=== PATIENT | female | born 2005 | race Caucasian/White ===

== ENCOUNTER 2024-11-26 11:46 | Emergency (ER) | payer OTHER, SELFPAY ==
[2024-11-26 11:46] VITALS: BMI 19.9
[2024-11-26 11:49] VITALS: BP 108/78
[2024-11-26] MEDS: TORADOL 15 MG IV (12:47)
[2024-11-26] MEDS: ZOFRAN 4 MG IV (12:47)
[2024-11-26] MEDS: NSS 1000 IV (12:47)
[2024-11-26] MEDS: OMNIPAQUE 50 ML PO (12:47)
--- NOTE | 2024-11-26 12:47 | ED.GENMED ---
History of Present Illness
General
Chief Complaint: Abdominal Pain
Source: patient and family
Exam Limitations: none
Time Seen by Provider: 11/26/24 12:19
Nursing documentation reviewed up to this point in time: agreed with
History of Present Illness
History of Present Illness:
19 year old female presenting with acute onset diffuse abdominal pain associated with nausea,vomiting, and diarrhea. Symptoms started this morning once she woke up. She reports multiple episodes of nonbloody emesis and diarrhea. She describes pain
as 'crampy' without a vague distribution. She does note starting her menses last night and initially thought pain was period cramps however - she has never experienced them to this severity.
No associated fevers or urinary symptoms. No known sick contacts
She does have a hx of Crohn which is well controlled and states that this feels very different.
Review of Systems
Review of Systems
Allergies reviewed?: Yes
All Other Systems: ROS reviewed and negative except as documented in HPI and ROS
Phy Exam
Physical Exam
Physical Exam:
Vitals: Patient's vital signs are stable. Afebrile
General: Patient is moderately uncomfortable due to pain/nausea although appears nontoxic
Skin: Warm and dry, no rashes or lesions
Head: Normocephalic, atraumatic
Eyes: Sclera nonicteric.
Throat: Protecting airway
Neck: Normal ROM, no cervical spine tenderness, no meningismus
Cardiac: Regular rate and rhythm, no murmurs.
Pulm: Normal respiratory effort, no wheezes, rales, rhonchi heard on exam.
Abdomen: Abdomen soft. Mild diffuse abdominal tenderness without rebound tenderness or guarding. No point tenderness at mcburney point. Negative rodriguez sign.
Extremities: No evidence of cyanosis or edema
Neuro: AAOx3. CN II-XII intact. No focal neurologic deficits.
Psychiatric: Normal affect.
Course
Orders/Labs/Results
Orders:
Orders
11/26/24 12:32
0.9% Sodium Chloride 1000 ml [Nss] 1,000 ml IV BOLUS
Iohexol [Omnipaque] See Protocol PO NOW STA
Ketorolac [Toradol] 15 mg IV NOW STA
Ondansetron Injectable [Zofran] 4 mg IV NOW STA
Pelvis (Non Obstetric) US [US Pelvis Only (non-obstetric)] Urgent
Comment:
Reason For Exam: abdominal pain, +N/V
US Abdomen - Appendix Only Urgent
Comment:
Reason For Exam: jael-umbilical abdominal pain +vomiting
11/26/24 12:33
Test Result ONCE
11/26/24 12:45
Complete Blood Count/With Diff Urgent
Comprehensive Metabolic Panel Urgent
HCG, Serum Qualitative Screen Urgent
Lipase Urgent
11/26/24 13:13
Metoclopramide [Reglan] 10 mg IV NOW STA
11/26/24 13:37
Morphine Sulfate 2 mg IV NOW STA
Abnormal Lab Results
11/26/24
12:45
WBC 17.2 H 10^3/uL
(4.8-10.8)
RBC 4.11 L 10^6/uL
(4.20-5.40)
Hgb 10.5 L g/dL
(12.0-16.0)
Hct 31.8 L %
(37.0-47.0)
MCV 77.4 L fL
(81.0-99.0)
MCH 25.5 L pg
(27.0-31.0)
Abs Immat Gran (auto) 0.1 H 10^3/uL
(0-0.05)
Absolute Neuts (auto) 15.9 H 10^3/uL
(1.4-6.5)
Absolute Lymphs (auto) 0.7 L 10^3/uL
(1.2-3.4)
Neutrophils % 92.2 H %
(42.2-75.2)
Lymphocytes % 3.9 L %
(20.5-51.1)
Carbon Dioxide 18 L mmol/L
(22-30)
Glucose 171 H mg/dl
(70-99)
Calcium 10.3 H mg/dl
(8.4-10.2)
Total Protein 8.5 H g/dl
(6.3-8.2)
11/26/24 12:45
11/26/24 12:45
Vital Signs
Initial and Last Documented VS:
Initial Vital Signs
Temp Pulse Resp BP Pulse Ox
97.5 F 95 16 108/78 100
11/26/24 11:49 11/26/24 11:49 11/26/24 11:49 11/26/24 11:49 11/26/24 11:49
Last Documented Vital Signs
Temp Pulse Resp BP Pulse Ox
97.5 F 72 16 99/49 98
11/26/24 11:49 11/26/24 17:39 11/26/24 17:39 11/26/24 17:39 11/26/24 17:42
MDM/Problems Addressed
Differential Diagnosis Includes:
Not limited to: viral gastroenteritis, ovarian torsion, dysmenorrhea, appendicitis, etc.
MDM/Problems Addressed:
19 year-old female presenting with acute onset diffusive abdominal pain associated with persistent nausea, vomiting, diarrhea starting this morning. She did start her period yesterday. Patient afebrile with otherwise stable vital signs. Physical
exam as above. Differential broad at this time. Although given acute onset nature associated with vomiting � ovarian torsion would be on differential. Will start with basic labs, urinalysis, symptomatic treatment. Will attain pelvic ultrasound and
appendix ultrasound. Will closely monitor and reassess.
Update: labs reviewed significant for a leukocytosis and mild acidosis likely secondary to G.I. losses. Patient symptoms seem significantly improved following pain management as well as antiemetic therapy. Ultrasound pending.
Update: Both pelvic and appendix ultrasound without acute abnormalities. Appendix was not visualized on ultrasound. Patient is resting comfortably in room and has been without additional episodes of vomiting in emergency department. Did examine
abdomen again which is soft and nontender. There are no areas of focal tenderness, specifically not at McBurney�s point. Overall impression is likely gastroenteritis given benign abdominal exam and complete improvement in symptoms. However - unable
to exclude appendicitis. Did discuss CT scan for further evaluation. As she is completely asymptomatic - she prefers discharge home with close monitoring of symptoms. Will send prescription for Zofran as needed. Very strict return precautions
discussed including fever, worsening abdominal pain, persistent lack of appetite, etc. Patient and patient parents comfort with plan. All questions answered.
Chronic conditions affecting care:
N/A
Acute Exacerbation and/or Progression of Chronic Illness:
N/A
*Radiology
Radiology exam reviewed: radiology read reviewed
*Pulse Oximetry
Patient hypoxic: no
*EKG
Interpreted by ED Provider?: NA
*Gas Booster Engineer Interpretation
Rate: Gas Booster Engineer- N/A
*Critical Care Note
Total Time (30-74mins, 75-104mins- exclusive of procedures): Not Applicable
Data Reviewed
Further Testing Considered But Not Given:
considered abdominal ct although patient afebrile with complete resolution in symptoms with benign abdominal exam
ED Attending Note
-
Portions of this chart may have been created with voice recognition software.� Occasional wrong word or��sound alike� substitutions may have occurred due to the inherent limitations of voice recognition software.
Discharge Plan
Departure
Patient Disposition: Home (Routine Discharge)
Date of Disposition: 11/26/24
Time of Disposition: 17:25
Patient with high blood pressure during this ER visit?: No
Condition: Good
Covid-19: Not Applicable
Discharge Problem:
Abdominal pain, Nausea, vomiting and diarrhea
Instructions: Nausea and Vomiting, Adult (DC), Abdominal Pain
Prescriptions:
New
ondansetron 4 mg tablet,disintegrating
4 mg PO Q8H PRN (Reason: nausea and vomiting) Qty: 5 0RF
No Action
infliximab [Remicade] 100 MG/10 ML recon soln
100 mg IV .[id number]
amoxicillin 500 MG capsule
500 mg PO TID Qty: 29 0RF
Referrals:
Thomas Munoz MD [Primary Care Provider] - Follow up in 2-3 days
Activity Restrictions/Additional Instructions:
RETURN TO THE EMERGENCY DEPARTMENT WITH ANY FEVERS, WORSENING ABDOMINAL PAIN, INTRACTABLE NAUSEA/VOMITING, PERSISTENT LACK OF APPETITE, LIGHTHEADEDNESS, OR ANY OTHER CONCERNS
- As discussed-it is important stay well-hydrated. I recommend a bland diet over the next few days and advance as tolerated.
- You can take Tylenol and/or Motrin as needed for pain.
- Follow-up with primary care early next week for further evaluation/management. Patient also follow-up with your GI doctor at [facility]
Monitor symptoms closely and return to the emergency department with any acute worsening/new symptoms or any other concerns
Interventions
Interventions:
*Risk Screen - Suicide Last Done: 11/26/24 11:49
*General Assessment Last Done: 11/26/24 15:10
*Neglect/Abuse Screening Last Done: 11/26/24 15:10
*ED- Fall Risk Assessment Last Done: 11/26/24 15:34
*ED COVID-19 Vaccine History Last Done: 11/26/24 17:40
*Nursing Disposition Last Done: 11/26/24 17:40
JD-Unzlne-Qqemctxygu Assessment Last Done: 11/26/24 15:10
Discharge Date and Time
Discharge Date/Time: 11/26/24 17:42
Print Language: UKRAINIAN
[2024-11-26 12:59] LABS: % Basophils 0.2 % (0-2); % Immature Granulocytes 0.3 % (0-0.5); % Lymphocytes 3.9 % (20.5-51.1); % Monocytes 3.4 % (1.7-9.3); % Neutrophils 92.2 % (42.2-75.2); Absolute Immature Granulocytes 0.1 10^3/uL (0-0.05); Absolute Lymphocytes 0.7 10^3/uL (1.2-3.4); Absolute Monocytes 0.6 10^3/uL (0.1-0.6); Absolute Neutrophils 15.9 10^3/uL (1.4-6.5); Hematocrit 31.8 % (37.0-47.0); Hemoglobin 10.5 g/dL (12.0-16.0); Mean Corpuscular Hgb 25.5 pg (27.0-31.0); Mean Corpuscular Volume 77.4 fL (81.0-99.0); Mean Platelet Volume 9.1 fL (7.4-10.4); Nucleated Red Blood Cells % 0 %; Platelet Count 336 10^3/uL (130-400); Red Blood Cell Count 4.11 10^6/uL (4.20-5.40); Red Cell Dist. Width 13.1 % (11.5-14.5); White Blood Cell Count 17.2 10^3/uL (4.8-10.8)
[2024-11-26 13:00] VITALS: BP 131/91
[2024-11-26 13:10] LABS: ALT (SGPT) 20 U/L (0-35); AST (SGOT) 30 U/L (14-36); Albumin 4.8 g/dl (3.5-5.0); Alkaline Phosphatase 51 U/L (38-126); Blood Urea Nitrogen 12 mg/dl (7-17); Calcium 10.3 mg/dl (8.4-10.2); Carbon Dioxide 18 mmol/L (22-30); Chloride 107 mmol/L (98-107); Glucose 171 mg/dl (70-99); Lipase 42 U/L (23-300); Potassium 3.8 mmol/L (3.5-5.1); Sodium 139 mmol/L (135-145); Total Bilirubin 0.9 mg/dl (0.2-1.3); Total Protein 8.5 g/dl (6.3-8.2); eGFR > 60.00
[2024-11-26 13:11] LABS: HCG, Serum Qualitative Screen Negative
[2024-11-26] MEDS: REGLAN 10 MG IV (13:25)
[2024-11-26] MEDS: MORPHINE SULFATE 2 MG IV (13:40)
[2024-11-26 14:00] VITALS: BP 102/60
[2024-11-26 15:00] VITALS: BP 92/46
[2024-11-26 16:00] VITALS: BP 106/46
[2024-11-26 17:39] VITALS: BP 99/49
== END 2024-11-26 17:42 | disposition home or self-care (01) ==
LOC: EMR 11:46
PROVIDERS: Physician Assistant; EMERGENCY PHYSICIAN Student in an Organized Health Care Education/Training Program; PRIMARYCARE PHYSICIAN Pediatrics
DX: R10.84 Generalized abdominal pain (principal); R11.2 Nausea with vomiting, unspecified; R19.7 Diarrhea, unspecified; D72.829 Elevated white blood cell count, unspecified; E87.20 Acidosis, unspecified
CPT/HCPCS: 99284; 96374; 96375; 96361; 76705; 76856; 80053; 83690; 84703; 85025